=== PATIENT | female | born 1940 | race Caucasian/White ===

== ENCOUNTER → 2016-09-12 | Outpatient (CLI) | payer MEDICARE, OTHER ==
--- NOTE | ~2016-09-12 | MY29 ---
[facility] A Service of [facility] RADIOLOGY TEXT RESULTS PATIENT: CRUZ PATE LOCATION: [facility] : 44 UNIT #: [id number] AGE: [address]: Amauri Marte MD SEX: F ORDER DR: [id number] [facility] [address] [place], [place] [address] [id number] O MR#: [id number] Acc #: [id number] NAME: CRUZ PATE : 1940 SEX: F STUDY DATE/TIME: 09/12/2016 10:05 UNIT: [facility] ROOM: STUDY DESCRIPTION: MY HENRY SCREENING W/ CAD BILAT Attending Physician: Amauri Marte M.D. Ordering Physician: Amauri Marte M.D. Primary Care Physician: Amauri Marte M.D. MEDICAL IMAGING REPORT This report is preliminary unless electronic signature is present EXAM Digital screening mammogram, 09/12/2016 HISTORY 76-year-old woman no risk elevation. Annual screening. COMPARISON Mammograms date to 07/01/2005 with most recent 07/07/2015. FINDINGS Digital imaging of each breast was completed utilizing a two-view examination of each breast in craniocaudal and mediolateral-oblique projections. Review and interpretation of digital mammograms include a second review in conjunction with FDA-approved CAD device. There is a normal parenchymal presentation bilaterally consistent with the patient's age. There are no breast masses imaged and no parenchymal asymmetry is visualized. There are no suspicious microcalcifications and I see no focal architectural disturbance. IMPRESSION Negative screening digital mammogram. One-year followup recommended. Patients over the age of 40 are entered into a reminder system with target due date for the next mammogram. A result letter will also be sent to the patient. BIRADS: 1 Negative Dictated by... Carlos Molina M.D. [facility] A Service of [facility] RADIOLOGY TEXT RESULTS PATIENT: CRUZ PATE LOCATION: [facility] : 44 UNIT #: [id number] AGE: [address]: Amauri Marte MD SEX: F ORDER DR: THIS IS AN ELECTRONICALLY VERIFIED REPORT Carlos Molina M.D. at 09/12/2016 2:19 PM Jaiden TD: 09/12/2016 11:42 JOB #: [id number] MEDICAL IMAGING REPORT Page 1 of 1 COPY
== END | disposition home or self-care (01) ==
LOC: CWCC 09:34
DX: Z12.31 Encounter for screening mammogram for malignant neoplasm of breast (principal)
CPT/HCPCS: G0202